=== PATIENT | male | born 1960 | race Caucasian/White ===

== ENCOUNTER 2018-11-08 14:06 | Inpatient (IN) | payer OTHER, MEDICAID ==
[~2018-11-08] VITALS: Ht 172.7 cm; Wt 73.0 kg
--- NOTE | ~2018-11-08 | EKG ---
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
[2018-11-08 15:22] VITALS: BP 134/80
--- NOTE | 2018-11-08 15:22 | NUR ---
A 58, admitted to 5E, under the services of CATHERINE Copeland DO with a diagnosis of ALCOHOL WITHDRAWAL. Chief complaint is ALCOHOL WITHDRAWAL. Patient arrived via ambulatory from [place]. Monitor applied. Initial assessment completed. Vital signs taken and recorded. CATHERINE COPELAND DO notified of admission to the unit. Orders received. See assessment for past medical history, medications and allergies. Patient and/or family oriented to unit. [address] visitation policy reviewed. Clothing/patient valuable form completed. TRUE GUADARRAMA
--- NOTE | 2018-11-08 15:54 | NUR ---
MEDS BROUGHT IN FROM HOME. MEDS SENT DOWN TO PHARMACY PER POLICY.
[2018-11-08] MEDS ORDERED: SEROQUEL100 MG PO (15:59)
[2018-11-08 16:00] VITALS: BP 134/80
[2018-11-08] MEDS ORDERED: IBU800 M2 PO (16:01)
[2018-11-08] MEDS ORDERED: BUSPIRONE HCL7.5 MG PO (16:03)
[2018-11-08] MEDS ORDERED: LAMICTAL150 MG PO (16:04)
[2018-11-08] MEDS ORDERED: FLOMAX0.4 MG PO (16:04)
[2018-11-08] MEDS ORDERED: SYMB160 INH (16:05)
[2018-11-08] MEDS ORDERED: LIPITOR10 MG PO (16:05)
[2018-11-08] MEDS ORDERED: PRIMIDONE50 MG PO (16:09)
[2018-11-08] MEDS ORDERED: HYDROXYZINE HCL50 MG PO (16:11)
[2018-11-08] MEDS ORDERED: COREG3.125 MG PO (16:12)
[2018-11-08] MEDS ORDERED: B COMPLEX1 EACH PO (16:12)
[2018-11-08] MEDS ORDERED: AMBIEN10 M1 PO (16:13)
[2018-11-08] MEDS ORDERED: PRILOSEC20 M1 PO (16:14)
--- NOTE | 2018-11-08 16:14 | NUR ---
MED REC UPDATED PER POLICY.
[2018-11-08 16:21] VITALS: BP 134/80
--- NOTE | 2018-11-08 16:29 | NUR ---
NOTIFIED REGARDING ADMISSION.
--- NOTE | 2018-11-08 16:51 | NUR ---
PATIENT MEETS [facility]. CIWA=22. PATIENT WANTS TO FOLLOW UP WITH AA MEETINGS. ROCHELLE ORTIZ B.A. COMBAT SYSTEMS OFFICER
--- NOTE | 2018-11-08 18:08 | NUR ---
IV ATIVAN GIVEN AT THIS TIME PER ORDER FOR C/O INCREASED ANXIETY. TREMORS NOTED. CHRONIC PER PT. DENIES ANY HALLUCINATIONS. ALERT/ORIENTED X3. WILL MONITOR EFFECTIVENESS. ROBAXIN, ZOFRAN AND VISTARIL ALL GIVEN PER PRN ORDER FOR C/O MUSCLE ACHES, ANXIETY AND NAUSEA. WILL MONITOR EFFECTIVENESS.
[2018-11-08 18:24] LABS: BILIRUBIN 1+ (NEGATIVE); BLOOD NEGATIVE (NEGATIVE); CLARITY CLEAR (CLEAR); COLOR YELLOW (YELLOW); GLUCOSE NEGATIVE (NEGATIVE); KETONE TRACE (NEGATIVE); LEUKO ESTERASE NEGATIVE (NEGATIVE); NITRITE NEGATIVE (NEGATIVE); SPECIFIC GRAVITY >= 1.030 (1.005-1.030); UROBILINOGEN 0.2 E.U./dl (0.2-1.0)
[2018-11-08 18:24] LABS: BASO % 0.4 % (0.0-1.0); EOS # 0.1 10*3/uL (0.0-0.4); EOS % 1.6 % (1.0-4.0); HEMATOCRIT 38.5 % (42.0-52.0); HEMOGLOBIN 12.9 g/dl (14.0-18.0); LYMPH # 1.6 10*3/uL (1.3-4.4); MEAN CELL VOLUME 93.2 fl (80.0-94.0); MEAN CORPUSCULAR HGB 31.2 pg (27.0-31.0); MEAN CORPUSCULAR HGB CONC 33.5 g/dl (33.0-37.0); MEAN PLATELET VOLUME 10.4 fl (9.6-12.3); MONO # 0.6 10*3/uL (0.1-1.0); MONO % 11.3 % (3.0-9.0); NEUT # 2.7 10*3/uL (2.3-7.9); NEUT % 53.7 % (47.0-73.0); PLATELET COUNT AUTOMATED 169 10*3/uL (130-400); RED BLOOD COUNT 4.13 10*6/uL (4.50-5.90); RED CELL DISTRI WIDTH 16.8 % (0-14.5); WHITE BLOOD COUNT 4.9 10*3/uL (4.8-10.8)
[2018-11-08 18:29] LABS: BACTERIA 1+; EPITHELIAL CELLS 0-2; HYALINE CAST TNTC; RBC 0-2 rbc/hpf (0-2)
[2018-11-08 18:30] LABS: MUCOUS TRACE
--- NOTE | 2018-11-08 18:33 | NUR ---
PATIENT PLACED ON THE COMMUTATOR PRESSER PER ORDER. HR 80'S/PACED AT 100%. WILL CONTINUE TO MONITOR.
[2018-11-08 18:39] LABS: ALBUMIN 3.2 gm/dl (3.1-4.5); ALKALINE PHOSPHATASE 126 U/L (45-117); BUN 8 mg/dl (7-24); CHLORIDE 104 mmol/L (98-107); CREATININE 0.99 mg/dL (0.70-1.30); POTASSIUM 3.2 mmol/L (3.5-5.1); SGOT/AST 37 IU/L (3-35); SGPT/ALT 29 U/L (12-78); SODIUM 142 mmol/L (136-145); TOTAL PROTEIN 6.7 gm/dL (6.4-8.2)
[2018-11-08 18:40] LABS: ETHYL ALCOHOL < 3.0 mg/dl (<3)
[2018-11-08 20:00] VITALS: BP 118/72
--- NOTE | 2018-11-08 21:01 | NUR ---
NOTIFIED OF PATIENT'S VISIBLE TREMORS. PATIENT CLAIMS THEY ARE GETTING WORSE. STATES THEY ARE SO BAD THAT HE CANNOT HOLD HIS PHONE. DISCUSSED MEDICATIONS ORDERED/GIVEN AND PERTINENT HISTORY. STATES HE WILL BE UP TO SEE PATIENT.
--- NOTE | 2018-11-08 21:29 | NUR ---
PATIENT MEDICATED WITH IV ATIVAN FOR WITHDRAWAL SYMTPOMS OF TREMORS. WILL MONITOR.
[2018-11-09] VITALS: BP 124/73
--- NOTE | 2018-11-09 02:30 | NUR ---
EARLIER MEDICATION APPEARS EFFECTIVE. PATIENT ASLEEP IN BED. RESPIRATIONS EASY. NO S/S OF DISTRESS NOTED. WILL MONITOR. CALL LIGHT LEFT IN REACH. BED ALARM INTACT.
--- NOTE | 2018-11-09 03:17 | NUR ---
MVI BAG COMPLETE AT THIS TIME. IV DISCONNECTED. PATIENT HAD EPISODE OF URINARY INCONTINENCE. ASSISTED PATIENT TO USE URINAL AND CLEANED PATIENT UP. NEW GOWN PROVIDED. ASSISTED BACK INTO BED. BED LEFT LOCKED IN LOW POSITION. BED ALARM INTACT. CALL LIGHT LEFT IN REACH.
[2018-11-09 05:30] VITALS: BP 134/81
--- NOTE | 2018-11-09 06:35 | NUR ---
PATIENT'S BELONGINGS GIVEN TO SHIFT DIRECTOR FOR LOCK BOX PLACEMENT.
--- NOTE | 2018-11-09 07:55 | NUR ---
PT RESTING IN BED, ASSISTED TO BATHROOM WITH ONE ASSIST AND BACK TO BED. PT C/O BACK PAIN FROM BED PER PT. ALSO ANXIOUS, VISIBLE TREMORS NOTED. MEDICATED WITH TYLENOL PO PER PRN ORDER FOR PAIN. ALSO MEDICATED WITH VISTARIL PO PER PRN ORDER FOR ANXIETY. CALL LIGHT IN REACH. SEE SHIFT ASSESSMENT.
--- NOTE | 2018-11-09 08:40 | NUR ---
RESTING IN BED. STATES MEDICATION SEEMS TO HELP SOME. CALL LIGHT IN REACH. BED ALARM ON.
--- NOTE | 2018-11-09 11:40 | NUR ---
ASSISTED UP TO RECLINER CHAIR. PT TREMORS. ANXIOUS. MEDICATED WITH ATIVAN IV PER PRN ORDER, SEE EMAR. CALL LIGHT IN REACH. BODY ALARM ON PT GOWN.
--- NOTE | 2018-11-09 13:00 | NUR ---
PT RESTING IN RECLINER CHAIR WITH BODY ALARM ON. NO C/O AT THIS TIME. CALL LIGHT IN REACH.
--- NOTE | 2018-11-09 15:00 | NUR ---
PT C/O HEADACHE, RATES PAIN 6 ON PAIN SCALE 0-10. MEDICATED WITH MOTRIN PO PER PRN ORDER, SEE EMAR. ALSO MEDICATED WITH ROBAXIN FOR MUSCLE ACHES AND ANXIETY MEDICATED WITH VISTARIL PO POER PRN ORDER, SEE EMAR. CALL LIGHT IN REACH. SEE SHIFT ASSESSMENT.
[2018-11-09 16:00] VITALS: BP 118/71
--- NOTE | 2018-11-09 16:00 | NUR ---
RESTING IN BED WITH EYES CLOSED, RESP-EASY AND REGULAR. MEDICATION SEEMS TO BE EFFECTIVE. CALL LIGHT IN REACH. SEE SHIFT ASSESSMENT.
--- NOTE | 2018-11-09 16:10 | NUR ---
[place] STAFF FOLLOWED UP WITH PATIENT. PATIENT'S DISCHARGE HAS REMAINED THE SAME. PATIENT WANTS TO ATTEND AA MEETINGS IN HIS LOCAL AREA. ROCHELLE ORTIZ B.A. OFFICE MACHINE MECHANIC
--- NOTE | 2018-11-09 18:20 | NUR ---
PT RESTING IN BED, TREMORS VISIBLE. MEDICATED WITH ATIVAN PO PER PRN ORDER, SEE EMAR. VERY ANXIOUS. CALL LIGHT IN REACH. BED ALARM ON.
--- NOTE | 2018-11-09 19:00 | NUR ---
PT RESTING IN BED. MEDICATION SEEMS TO BE HELPING. CALL LIGHT IN REACH. BED ALARM ON.
[2018-11-09 20:00] VITALS: BP 141/85
[2018-11-10] VITALS: BP 149/88
--- NOTE | 2018-11-10 09:32 | NUR ---
Ativan given to relieve tremors. Will monitor.
[2018-11-10 09:45] VITALS: BP 138/76
--- NOTE | 2018-11-10 10:20 | NUR ---
Ativan effective. Patient more comfortable.
--- NOTE | 2018-11-10 11:16 | NUR ---
NO CHANGES HAVE BEEN MADE TO THE PATIENT'S AFTERCARE PLAN. PATIENT PLANS TO FOLLOW UP WITH AA MEETINGS NEAR HIS HOME. BERNARDO LARKIN MS RIP SAW OPERATOR
[2018-11-10 12:00] VITALS: BP 125/68
--- NOTE | 2018-11-10 14:49 | NUR ---
Ativan given for moderate tremors. Will monitor.
--- NOTE | 2018-11-10 15:30 | NUR ---
Ativan effective. Patient asleep with respirations >12.
[2018-11-10 16:00] VITALS: BP 122/74
[2018-11-10 20:00] VITALS: BP 133/64
--- NOTE | 2018-11-10 21:09 | NUR ---
PATIENT IS AAOX2 PERSON AND PLACE WITH EASY AND REGULAR RESPERS ON ROOM AIR. PATIENT REORIENTED AND ASSESSMENT WAS COMPLETE. BED IS LOW, LOCKED, ALARMED, AND CALL LIGHT IS WITHIN REACH. SEE SHIFT ASSESSMENT.
--- NOTE | 2018-11-10 21:54 | NUR ---
PRN ATIVAN GIVEN PER ORDER FOR TREMORS. PATIENT TOLERATED WELL, CALL LIGHT IS WITHIN REACH WILL MONITOR EFFECT.
--- NOTE | 2018-11-10 23:30 | NUR ---
PRN ATIVAN EFFECTIVE, PATIENT IS SLEEPING WITH EASY AND REGULAR RESPERS ON ROOM AIR. CALL LIGHT IS WITHIN REACH.
[2018-11-11] VITALS: BP 127/70
--- NOTE | 2018-11-11 03:30 | NUR ---
PT. IS SLEEPING WITH EASY AND REGULAR RESPERS ON ROOM AIR. CALL LIGHT IS WITHIN REACH.
[2018-11-11 06:44] LABS: BASO % 0.2 % (0.0-1.0); EOS # 0.1 10*3/uL (0.0-0.4); EOS % 1.9 % (1.0-4.0); HEMATOCRIT 36.6 % (42.0-52.0); HEMOGLOBIN 11.7 g/dl (14.0-18.0); LYMPH # 1.7 10*3/uL (1.3-4.4); LYMPH % 35.4 % (27.0-41.0); MEAN CELL VOLUME 94.3 fl (80.0-94.0); MEAN CORPUSCULAR HGB 30.2 pg (27.0-31.0); MEAN PLATELET VOLUME 10.5 fl (9.6-12.3); MONO # 0.6 10*3/uL (0.1-1.0); MONO % 12.1 % (3.0-9.0); NEUT # 2.4 10*3/uL (2.3-7.9); NEUT % 50.2 % (47.0-73.0); PLATELET COUNT AUTOMATED 150 10*3/uL (130-400); RED BLOOD COUNT 3.88 10*6/uL (4.50-5.90); RED CELL DISTRI WIDTH 16.4 % (0-14.5); WHITE BLOOD COUNT 4.7 10*3/uL (4.8-10.8)
[2018-11-11 08:00] VITALS: BP 127/82
[2018-11-11 12:00] VITALS: BP 134/72
[2018-11-11 16:00] VITALS: BP 121/70
--- NOTE | 2018-11-11 17:50 | NUR ---
Called Dr. Neville regarding patients request to have a doctor manage his pshyc medications and help stop the tremors. No orders at this time.
--- NOTE | 2018-11-11 19:02 | NUR ---
Ativan given per patient request for anxiety and tremors. The tremors are still visable but they have improved since 11-10-18. Patient is still very unsteady with ambulation. Patient is hopeful about finding relief from his tremors.
--- NOTE | 2018-11-11 19:14 | NUR ---
Spoke with Dominga in [facility] regarding consult for med management.
[2018-11-11 20:00] VITALS: BP 123/75
[2018-11-12] VITALS: BP 132/84
--- NOTE | 2018-11-12 00:04 | NUR ---
Requested and medicated with Visteral for anxiety, Ambien to aid sleep , Robaxin for muscle aches and Motrin for all over body pain at 2200. States mild relief of pain and aches, with slight decrease in anxiety. Ambulated to BR with slow, unsteady gait and assist of one. Temors are visible, requested Ativan stating that seems to help. Ativan given at 2345 to decrease anxiety and help relieve tremors. Will continue to monitor.
--- NOTE | 2018-11-12 01:47 | NUR ---
Requested and medicated with Ativan at 2345 for complaints of severe anxiety, with tremors. Will continue to monitor.
--- NOTE | 2018-11-12 07:51 | NUR ---
Requested and medicated with Ativan at 0700 for complaints of anxiety and tremors. Will continue to monitor.
[2018-11-12 08:00] VITALS: BP 142/87
--- NOTE | 2018-11-12 09:32 | NUR ---
Robaxin 750 mg and vistaril 50 mg given per pt request for anxiety and restless legs.
[2018-11-12] MEDS ORDERED: NATURE'S BLEND100 M2 PO (10:04)
[2018-11-12] MEDS ORDERED: METHOCARBAMOL750 M1 PO (10:04)
[2018-11-12] MEDS ORDERED: ZOFRAN 4 MG ED2 TAB PO (10:04)
[2018-11-12] MEDS ORDERED: DICYCLOMINE HCL20 MG PO (10:04)
[2018-11-12] MEDS ORDERED: THERA TABLET400 MCG PO (10:17)
[2018-11-12] MEDS ORDERED: NATURE'S BLEND F1 MG PO (10:17)
--- NOTE | 2018-11-12 11:13 | NUR ---
Discharge instructions reviewed with patient/family. Patient receptive and verbalizes understanding. Follow-up care arranged. Written instructions given to patient/family.F/U education provided. pt provided teachback.heplock d/c'd without difficulty. HAYES MCNEAL
== END 2018-11-12 11:13 | disposition home or self-care (01) | DRG 897 ==
LOC: 5E 14:06
PROVIDERS: Family Medicine; ADMIT Internal Medicine
DX: F10.239 Alcohol dependence with withdrawal, unspecified (principal); I42.9 Cardiomyopathy, unspecified; I10 Essential (primary) hypertension; E78.5 Hyperlipidemia, unspecified; J44.9 Chronic obstructive pulmonary disease, unspecified; Y90.9 Presence of alcohol in blood, level not specified; F39 Unspecified mood [affective] disorder; G89.29 Other chronic pain; M54.9 Dorsalgia, unspecified; Z95.0 Presence of cardiac pacemaker; Z83.3 Family history of diabetes mellitus; Z88.0 Allergy status to penicillin; Z79.899 Other long term (current) drug therapy; Z72.0 Tobacco use; Z71.6 Tobacco abuse counseling